=== PATIENT | female | born 1995 | race Caucasian/White ===

== ENCOUNTER 2018-07-27 14:35 | Emergency (ER) | payer MEDICAID ==
[~2018-07-27] VITALS: Ht 167.6 cm; Wt 53.1 kg
[2018-07-27 14:35] VITALS: BP 112/76
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
--- NOTE | 2018-07-27 14:50 | NUR ---
ED Nurse Note: urine specimen obtained and sent.
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
[2018-07-27] MEDS ORDERED: LORazepam 1mg tab ORAL ONE (15:45)
--- NOTE | 2018-07-27 16:30 | Diagnostic Imaging Report ---
EXAM: XR Right Ribs, 6 Views CLINICAL HISTORY: PAIN TECHNIQUE: Frontal and oblique views of the right ribs. COMPARISON: No relevant prior studies available. FINDINGS: Lungs: No consolidation. Pleural space: Unremarkable. No pneumothorax. Bones/joints: No acute fracture. IMPRESSION: No displaced rib fracture.
[2018-07-27] MEDS ORDERED: ROBAXIN-750750 MG PO (16:41)
[2018-07-27] MEDS ORDERED: IBUPROFEN600 MG ORAL (16:41)
[2018-07-27 16:50] VITALS: BP 108/76
--- NOTE | 2018-07-27 16:50 | NUR ---
ED Nurse Note: pt reports pain is a little bit better, d/c instruction with prescription provided per provider order, pt AA&ox4, gcs=15, skin warm and dry resp even and unlabored, ambulatory w/ steady gait and vss, pt education done via discussion and hand out, pt wristband removed, family accompanied pt, pt advised to follow up with pcp or return to ed if s/s worsen or new s/s develop, pt verbalized understanding and agrees with plan, all belongings left w/ pt.
== END 2018-07-27 16:50 | disposition home or self-care (01) ==
LOC: EDBD 14:35 → EMR 15:19
DX: S20.211A Contusion of right front wall of thorax, initial encounter (principal); S29.011A Strain of muscle and tendon of front wall of thorax, initial encounter; V43.52XA Car driver injured in collision with other type car in traffic accident, initial encounter; Y92.410 Unspecified street and highway as the place of occurrence of the external cause; Z88.0 Allergy status to penicillin; Z88.8 Allergy status to other drugs, medicaments and biological substances
CPT/HCPCS: 81025; 99283